=== PATIENT | female | born 1965 | race Caucasian/White ===

== ENCOUNTER → 2021-08-10 09:25 | Outpatient (BNVA) | payer BC, SELFPAY | PROVIDERS: Visit Provider Surgery | DX: Z11.52 Encounter for screening for COVID-19 (principal); R10.13 Epigastric pain | CPT/HCPCS: 87635 ==

== ENCOUNTER 2021-08-11 10:39 | Day surgery (SDC) | payer BC, SELFPAY ==
--- NOTE | 2021-08-11 10:50 | ANES.PREANE2 ---
Pre-Anesthetic Assessment Height/Weight: Height 1.7 m Weight 92.986 kg Preop Diagnosis: upper gi symptoms Operation Date: 08/11/21 11:30 Proposed Procedures p EGD 54424/r10.13(Not Applicable) - Clement Miranda MD Familial anesthetic complications: None Was Beta Charleen taken within 24 hours: N/A Was Clonidine taken within 24 hours: N/A Last intake: 08/10/2021 Social No alcohol and No tobacco Exam alert, oriented x 3, clear to auscultation bilaterally and regular rate & rhythm Airway Submandibular: within normal limits Cervical ROM: within normal limits Mallampati: Class I Dentition: full History/ROS No significant complaints Pulmonary None reported CV/HEM Hypertension METS = 4 None reported Hepatic None reported GI Gastroesophageal Reflux Disease Abdominal pain Metabolic None reported Musc/skel None reported Neuropsych None reported Anesthetic Plan ASA status: 2 Anesthesia: Anesthesia Evaluation, General and MAC Other: I discussed with the patient risks, goals, and benefits of MAC and general anesthesia. We discussed spectrum of MAC anesthesia including conversion to general as well as possibility of recall of intraoperative stimuli including discomfort/pain. Patient agrees to proceed with MAC. Risk of > 500 ml blood loss (7ml/kg in children): No Medications/Allergies Home Medications Medication Instructions Recorded Confirmed Last Taken Type hydrochlorothiazide 12.5 mg tablet 25 mg PO DAILY tab 07/27/20 08/10/21 08/10/21 History amlodipine 5 mg tablet 5 mg PO DAILY #90 tab 02/11/21 08/10/21 08/10/21 Rx pantoprazole 40 mg tablet,delayed 40 mg PO BID 08/10/21 08/10/21 08/10/21 History release (Protonix) Allergies Allergy/AdvReac Type Severity Reaction Status Date / Time morphine Allergy Severe nausea Verified 08/10/21 08:55 [facility] Anesthesia Medical History GERD (gastroesophageal reflux disease) Hypertension Surgical History H/O sinus surgery H/O: hysterectomy H/O: knee surgery History of abdominoplasty 1998 History of carpal tunnel surgery History of colonoscopy with polypectomy 2019 History of foot surgery History of umbilical hernia repair open 1998 Hx of appendectomy Hx of tonsillectomy S/P ORIF (open reduction internal fixation) fracture Family History Other Aneurysm CAD (coronary artery disease) Cancer Dementia Diabetes Hyperlipidemia Hypertension Denies family history of Chronic kidney disease (CKD) Anesthesia complication Bleeding disorder Family history of premature coronary artery disease Lung disease Stroke Social History Smoking and tobacco status: never smoked Alcohol intake: current Alcohol intake frequency: holidays/special occasions only Data Anesthesia Cardiac Studies: No Data to Display
[2021-08-11 10:59] VITALS: BP 119/86; PULSE 68; RESP 16; TEMP 36.1; O2SAT 98
--- NOTE | 2021-08-11 11:04 | W.PM.OPSUD ---
Surgery/Procedure H&P Update DATE OF PROCEDURE: August 11, 2021 DATE H&P PERFORMED: 08/10/21 H&P UPDATE INFORMATION: I have reviewed H&P completed within last 30 days, I have examined patient prior to procedure and No changes to prior documentation PREOP DIAGNOSIS: upper gi symptoms PLANNED PROCEDURE: Operation Date: 08/11/21 11:30 Proposed Procedures p EGD 61899/r10.13(Not Applicable) - Clement Miranda MD
[2021-08-11] MEDS: sodium chloride 0.9% 1,000 ML 30 ML IV (11:05)
[2021-08-11 11:25] VITALS: BP 115/72; PULSE 67; RESP 12; TEMP 36.4; O2SAT 93
--- NOTE | 2021-08-11 12:53 | ANE.PACU2 ---
Inpatient post-anesthesia follow up: Airway intact: Yes Vital signs: Temperature 97.5 F Pulse Rate 67 Respiratory Rate 12 Blood Pressure 115/72 Pulse Oximetry 93 Oxygen Delivery Me thod Room Air Oxygen Flow Rate Fraction of Inspir ed Oxygen Hydration adequate: Yes Nausea and vomiting: No Pain level: 1 Mental status: Baseline
== END 2021-08-11 11:50 | disposition home or self-care (01) ==
PROVIDERS: Visit Provider Surgery
PROC: 0DJ08ZZ Inspection of Upper Intestinal Tract, Via Natural or Artificial Opening Endoscopic (ICD-10-PCS; CPT 43235; principal; 2021-08-11 11:30)
DX: R10.13 Epigastric pain (principal); K29.70 Gastritis, unspecified, without bleeding; K21.9 Gastro-esophageal reflux disease without esophagitis; I10 Essential (primary) hypertension
CPT/HCPCS: 43239; 88305; 88342; J7030